=== PATIENT | female | born 1985 | race Caucasian/White ===

== ENCOUNTER 2019-12-12 23:33 | Inpatient (IN) | payer BC ==
[~2019-12-12] VITALS: Ht 160 cm; Wt 79.0 kg
[2019-12-13] MEDS ORDERED: AZITHROMYCIN 500 MG TABLET PO ONE
[2019-12-13] MEDS ORDERED: AMPICILLIN 2 GM in SODIUM CHLORIDE 0.9% 100 ML IV SCH
[2019-12-13] MEDS ORDERED: BETAMETHASONE 6 MG/ML, 5ML IM SCH
[2019-12-13] MEDS ORDERED: CALCIUM GLUCONATE 4.6 MEQ/10 ML IV PRN
[2019-12-13] MEDS ORDERED: LACTATED RINGERS 1,000 ML IV PRN
[2019-12-13] MEDS ORDERED: MAGNESIUM SULF. PMX 20GM/500ML 500 ML IV SCH
[2019-12-13] MEDS ORDERED: NEWBORN KIT ONE (00:17)
[2019-12-13] MEDS ORDERED: METOCLOPRAMIDE 5 MG/ML, 2ML IV ONE (00:30)
[2019-12-13] MEDS ORDERED: PLEASE ENTER ALLERGIES MC SCH (00:30)
[2019-12-13] MEDS ORDERED: SODIUM CITRATE/CITRIC ACID 30 ML UDC PO ONE (00:30)
[2019-12-13] MEDS ORDERED: LACTATED RINGERS 1,000 ML IVBOLUS ONE (00:30)
[2019-12-13] MEDS ORDERED: AZITHROMYCIN 500 MG in SODIUM CHLORIDE 0.9% 250 ML IV ONE (00:30)
[2019-12-13] MEDS ORDERED: BUPIVACAINE 0.25% ONE (01:15)
[2019-12-13] MEDS ORDERED: FENTANYL PF 100 MCG/2ML ONE (01:15)
[2019-12-13] MEDS ORDERED: morphine SULFATE/PF 0.5 MG/ML, 10ML ONE (01:21)
[2019-12-13] MEDS ORDERED: EPINEPHRINE 1 MG/ML, 1ML ONE (01:23)
[2019-12-13] MEDS ORDERED: METOCLOPRAMIDE 5 MG/ML, 2ML ONE (01:27)
[2019-12-13] MEDS ORDERED: MEPERIDINE/PF 50 MG/ML ONE (02:19)
[2019-12-13] MEDS ORDERED: CEFAZOLIN 1,000 MG ONE (02:20)
[2019-12-13] MEDS ORDERED: PHENYLEPHRINE 10 MG/ML ONE (02:20)
[2019-12-13] MEDS ORDERED: EPHEDRINE 50 MG/ML, 1ML ONE (02:20)
[2019-12-13] MEDS ORDERED: ONDANSETRON 2MG/ML, 2ML ONE (02:20)
[2019-12-13] MEDS ORDERED: OXYTOCIN 10 UNITS/ML, 1ML ONE (02:20)
[2019-12-13] MEDS ORDERED: WATER-INJECTION,STERILE 10 ML IV ONE (02:20)
[2019-12-13] MEDS ORDERED: OXYTOCIN 30U/ 0.9% NaCL 500ML 500 ML ONE (02:31)
[2019-12-13] MEDS ORDERED: MISOPROSTOL 200 MCG TABLET PR PRN (03:00)
[2019-12-13] MEDS: OXYTOCIN 30U/ 0.9% NaCL 500ML 500 ML IV SCH ×3 (03:00→23:00)
[2019-12-13] MEDS ORDERED: CARBOPROST TROMETHAMINE 250 MCG/ML, 1ML IM PRN (03:00)
[2019-12-13] MEDS ORDERED: METOCLOPRAMIDE 5 MG/ML, 2ML IV PRN (03:00)
[2019-12-13] MEDS ORDERED: LACTATED RINGERS 1,000 ML IV SCH (03:00)
[2019-12-13] MEDS ORDERED: ACETAMINOPHEN 325 MG TABLET PO PRN (03:00)
[2019-12-13] MEDS ORDERED: GLYCERIN ADULT SUPP PR PRN (03:00)
[2019-12-13] MEDS ORDERED: ONDANSETRON 2MG/ML, 2ML IV PRN (03:00)
[2019-12-13] MEDS: LACTATED RINGERS 1,000 ML IV SCH ×3 (03:00→19:00)
[2019-12-13] MEDS ORDERED: CALCIUM CARBONATE 500 MG TAB.CHEW PO PRN (03:00)
[2019-12-13] MEDS ORDERED: KETOROLAC 30 MG/1 ML ONE (03:42)
[2019-12-13] MEDS ORDERED: OXYcodone 5 MG/5 ML ORAL.SOL UDC ONE (03:43)
[2019-12-13] MEDS: KETOROLAC 30 MG/1 ML IV SCH ×3 (03:47→15:54)
[2019-12-13] MEDS ORDERED: ONDANSETRON 2MG/ML, 2ML IVPush PRN ×2 (04:00→06:30)
[2019-12-13] MEDS ORDERED: KETOROLAC 30 MG/1 ML IVPush PRN ×2 (04:00→06:30)
[2019-12-13] MEDS ORDERED: OXYcodone 5 MG/5 ML ORAL.SOL UDC PO PRN (04:00)
[2019-12-13] MEDS ORDERED: HYDROmorphone 1 MG/ML, 1ML INJ ONE (06:27)
[2019-12-13] MEDS ORDERED: NALOXONE 0.4 MG/ML, 1ML IVPush PRN (06:30)
[2019-12-13] MEDS ORDERED: HYDROmorphone/PF 10 MG/ML, 1ML IVPush PRN (06:30)
[2019-12-13] MEDS ORDERED: DIPHENHYDRAMINE 50 MG/ML, 1ML IVPush PRN (06:30)
[2019-12-13] MEDS ORDERED: OXYcodone/APAP 5/325MG TABLET PO PRN ×2 (06:30)
[2019-12-13 08:02] VITALS: BP 119/73
[2019-12-13] MEDS: PRENATAL VIT/IRON/FA 1 EACH TABLET PO SCH (09:00)
[2019-12-13 10:13] LABS: BASOPHILS % (AUTO) 0 % (0-1); EOSINOPHILS % (AUTO) 0 % (1-7); LYMPHOCYTES % (AUTO) 9 % (22-44); MEAN CORPUSCULAR HGB CONC 33.4 g/dL (32.4-35.8); MEAN PLATELET VOLUME 7.8 fL (7.4-10.4); MONOCYTES % (AUTO) 7 % (2-9); NEUTROPHILS % (AUTO) 84 % (42-75); PLATELET COUNT 273 x10^3/uL (130-400); RED BLOOD COUNT 3.79 x10^6/uL (3.82-5.3); RED CELL DISTRIBUTION WIDTH 12.8 % (9.6-15.2)
[2019-12-13 10:37] LABS: MD SCAN
[2019-12-13 11:50] VITALS: BP 112/69
[2019-12-13] MEDS: OXYcodone/APAP 5/325MG TABLET PO PRN ×3 (11:54→21:50)
[2019-12-13 17:06] VITALS: BP 121/78
[2019-12-13 19:20] VITALS: BP 108/72
[2019-12-13] MEDS ORDERED: DIPHENHYDRAMINE 25 MG CAPSULE PO PRN (21:40)
[2019-12-13] MEDS: IBUPROFEN 800 MG TABLET PO PRN (21:50)
[2019-12-13] MEDS: DOCUSATE 100 MG CAPSULE PO PRN (21:51)
[2019-12-14 01:10] VITALS: BP 112/78
[2019-12-14] MEDS: LACTATED RINGERS 1,000 ML IV SCH ×3 (03:00→19:00)
[2019-12-14] MEDS: OXYcodone/APAP 5/325MG TABLET PO PRN ×4 (06:19→22:12)
[2019-12-14] MEDS: IBUPROFEN 800 MG TABLET PO PRN ×2 (06:19→18:02)
[2019-12-14 07:05] VITALS: BP 113/74
[2019-12-14] MEDS: SIMETHICONE 80 MG CHEW TAB PO PRN ×2 (07:44→18:01)
[2019-12-14] MEDS: PRENATAL VIT/IRON/FA 1 EACH TABLET PO SCH (07:44)
[2019-12-14] MEDS: DOCUSATE 100 MG CAPSULE PO PRN ×2 (07:44→22:12)
[2019-12-14] MEDS: OXYTOCIN 30U/ 0.9% NaCL 500ML 500 ML IV SCH ×2 (07:45→19:00)
[2019-12-14 19:30] VITALS: BP 123/76
[2019-12-15] MEDS: IBUPROFEN 800 MG TABLET PO PRN ×3 (01:50→18:46)
[2019-12-15] MEDS: LACTATED RINGERS 1,000 ML IV SCH ×2 (03:00→11:00)
[2019-12-15] MEDS: OXYcodone/APAP 5/325MG TABLET PO PRN ×5 (03:30→22:35)
[2019-12-15] MEDS: OXYTOCIN 30U/ 0.9% NaCL 500ML 500 ML IV SCH (05:00)
[2019-12-15 07:00] VITALS: BP 117/77
[2019-12-15] MEDS: DOCUSATE 100 MG CAPSULE PO PRN ×2 (08:23→22:33)
[2019-12-15] MEDS: PRENATAL VIT/IRON/FA 1 EACH TABLET PO SCH (08:23)
[2019-12-15] MEDS: SIMETHICONE 80 MG CHEW TAB PO PRN (12:15)
[2019-12-15 19:57] VITALS: BP 115/69
[2019-12-16] MEDS: IBUPROFEN 800 MG TABLET PO PRN ×3 (03:18→21:57)
[2019-12-16] MEDS: OXYcodone/APAP 5/325MG TABLET PO PRN ×5 (03:19→23:21)
[2019-12-16 07:45] VITALS: BP 114/73
[2019-12-16] MEDS: PRENATAL VIT/IRON/FA 1 EACH TABLET PO SCH (08:05)
[2019-12-16] MEDS: DOCUSATE 100 MG CAPSULE PO PRN ×2 (08:05→19:07)
[2019-12-16] MEDS: SIMETHICONE 80 MG CHEW TAB PO PRN ×2 (12:51→19:07)
[2019-12-16 19:05] VITALS: BP 130/81
[2019-12-17] MEDS: OXYcodone/APAP 5/325MG TABLET PO PRN ×4 (02:16→18:21)
[2019-12-17] MEDS: IBUPROFEN 800 MG TABLET PO PRN ×2 (06:42→16:22)
[2019-12-17 08:20] VITALS: BP 126/82
[2019-12-17] MEDS: SIMETHICONE 80 MG CHEW TAB PO PRN (08:47)
[2019-12-17] MEDS: PRENATAL VIT/IRON/FA 1 EACH TABLET PO SCH (08:47)
[2019-12-17] MEDS: DOCUSATE 100 MG CAPSULE PO PRN (08:47)
[2019-12-17] MEDS ORDERED: IBUP-1222 PO (10:26)
[2019-12-17] MEDS ORDERED: OXYC-302 PO (10:27)
== END 2019-12-17 19:05 | disposition home or self-care (01) | DRG 788 ==
LOC: LDIP 23:33 → 2NW 12-13 05:37
PROVIDERS: ADMIT Obstetrics & Gynecology Maternal & Fetal Medicine; ATTEND Obstetrics & Gynecology Maternal & Fetal Medicine
PROC: 10D00Z1 Extraction of Products of Conception, Low, Open Approach (ICD-10-PCS; principal; 2019-12-13)
DX: O42.913 Preterm premature rupture of membranes, unspecified as to length of time between rupture and onset of labor, third trimester (principal); O32.1XX2 Maternal care for breech presentation, fetus 2; Z20.828 Contact with and (suspected) exposure to other viral communicable diseases; O30.043 Twin pregnancy, dichorionic/diamniotic, third trimester; Z85.820 Personal history of malignant melanoma of skin; Z86.006 Personal history of melanoma in-situ; Z3A.33 33 weeks gestation of pregnancy; Z37.2 Twins, both liveborn
CPT/HCPCS: 36415; 83735; 85025; 86850; 86900; 86923; 87635; 87806; 88307; G0378; J0171; J0290; J0456; J0690; J1170; J1885; J2175; J2274; J2405; G0475; J1200; J2370; J2590; J2765; J7050; J7120; Q0163